=== PATIENT | female | born 1985 | race Hispanic/Latino ===

== ENCOUNTER 2019-05-20 08:39 | Emergency (ER) | payer OTHER ==
[2019-05-20 09:12] LABS: #Eosinphils 0.1 thou/uL (0.0-0.7); #Lymphocytes 1.6 thou/uL (1.20-3.40); #Monocytes 0.5 thou/uL (0.11-0.59); %Basophils 0.7 % (0.0-1.0); %Lymphocytes 25.6 % (21.0-51.0); %Monocytes 7.9 % (0.0-10.0); %Neutrophils 63.7 % (42.0-75.0); Hemoglobin 11.8 g/dL (12.0-16.0); Mean Corpuscular HGB CONC 34.2 g/dL (32.0-36.0); Mean Corpuscular Hemoglobin 29.3 pg (27.0-31.0); Mean Corpuscular Volume 85.7 fL (78.0-98.0); Mean Platelet Volume 8.7 fL (7.4-10.4); Platelet Count 219 thou/uL (130-400); RBC Distribution Width 13.1 % (11.5-14.5); Red Blood Cell (RBC) Count 4.04 mill/uL (4.20-5.40); White Blood Cell (WBC) Count 6.3 thou/uL (4.8-10.8)
[2019-05-20] MEDS ORDERED: Mag-Al 1200 mg/1200 mg/30 ML UDCUP ONE (09:22)
[2019-05-20] MEDS ORDERED: Lidocaine Viscous Sol 2% 15 ml UD Cup ONE (09:22)
[2019-05-20 09:34] LABS: ALT (SGPT) 17 U/L (8-55); AST (SGOT) 21 U/L (5-34); Albumin 3.5 g/dL (3.5-5.0); Alkaline Phosphatase 53 U/L (40-110); Anion Gap 11 mmol/L (10-20); BUN (Urea Nitrogen) 7 mg/dL (7.0-18.7); Bilirubin, Total 0.4 mg/dL (0.2-1.2); Calc. Creatinine Clearance 0 mL/min (70-130); Calcium 9.3 mg/dL (7.8-10.44); Carbon Dioxide 24 mmol/L (22-29); Chloride 106 mmol/L (98-107); Estimated GFR-MDRD Greater than 90; Globulin 2.9 g/dL (2.4-3.5); Glucose 78 mg/dL (70-105); Lipase 12 U/L (8-78); Potassium 4.4 mmol/L (3.5-5.1); Protein, Total 6.4 g/dL (6.0-8.3); Sodium 137 mmol/L (136-145)
--- NOTE | 2019-05-20 09:41 | ULT ---
ULTRASOUND GALLBLADDER RIGHT UPPER QUADRANT: Date: 05/20/2019 COMPARISON: None. FINDINGS: Real-time Díaz scale and color evaluation of the right upper quadrant of the abdomen was performed. The visualized portions of the IVC and pancreas are unremarkable. Diffuse increased hepatic echotextu re without mass. Liver measures 20 cm in length. There is a focal area of fatty sparing over the gallbladder fossa measuring up to 1.8 cm in size. Por shady vein patent with antegrade flow. No cholelithiasis or evidence of cholecystitis. Right kidney measures 11.0 x 6.6 x 6.6 cm without mass, hydronephrosis, or calcifications. IMPRESSION: 1. Hepatomegaly with diffuse hepatic steatosis with gallbladder fossa sparing. 2. No cholelithiasis or evidence of cholecystitis. POS: [facility]
== END 2019-05-20 10:28 ==
LOC: ERS 08:39
DX: O99.612 Diseases of the digestive system complicating pregnancy, second trimester (principal); K29.70 Gastritis, unspecified, without bleeding; O99.342 Other mental disorders complicating pregnancy, second trimester; F41.9 Anxiety disorder, unspecified; F32.9 Major depressive disorder, single episode, unspecified; Z3A.25 25 weeks gestation of pregnancy
CPT/HCPCS: 36415; 76705; 80053; 83690; 85025